=== PATIENT | female | born 1955 | race Caucasian/White ===

== ENCOUNTER 2019-04-18 14:08 | Inpatient (IN) | payer BC ==
[~2019-04-18] VITALS: Ht 167.6 cm; Wt 80.3 kg
[2019-04-18] VITALS (14 sets, daily range): BP systolic 110–151; BP diastolic 56–95
--- NOTE | 2019-04-18 14:53 | NUR ---
IV ESTABALISHED TO RIGHT AC. BEGIN NS FLUID BOLUS OKAY PER PROVIDER.
[2019-04-18 15:34] LABS: BASOPHILS % (AUTO) 0.3 % (0-1); EOSINOPHILS % (AUTO) 0.1 % (0-6); HEMATOCRIT 46.1 % (35.0-45.0); HEMOGLOBIN 15.6 g/dl (12.0-16.0); LYMPHOCYTES # (AUTO) 1.4 X10'3 (1.1-4.8); LYMPHOCYTES % (AUTO) 13.4 % (21-51); MEAN CORPUSCULAR HEMOGLOBIN 30.6 PG (27.0-31.0); MEAN CORPUSCULAR VOLUME 90.1 FL (78-98); MEAN PLATELET VOLUME 7.5 FL (7.4-10.4); MONOCYTES # (AUTO) 0.7 X10'3 (0-0.9); MONOCYTES % (AUTO) 6.7 % (2-12); NEUTROPHILS # (AUTO) 8.4 X10'3 (1.8-7.7); NEUTROPHILS % (AUTO) 79.5 % (42-75); PLATELET COUNT 280 X10'3 (140-440); RED BLOOD COUNT 5.11 X10'6 (4.20-5.60); RED CELL DISTRIBUTION WIDTH 13.9 % (11.5-14.5); WHITE BLOOD COUNT 10.6 X10'3 (4.5-11.0)
[2019-04-18] MEDS ORDERED: piperacillin/tazo 3.375gm/50ml 50 ML IV ONE (15:35)
[2019-04-18] MEDS ORDERED: metroNIDAZOLE-Flagyl 500mg/NS 100 ML IV ONE (15:35)
[2019-04-18 15:38] LABS: ALBUMIN 3.8 G/DL (3.4-5.0); ANION GAP 6 (8-16); BLOOD UREA NITROGEN 28 MG/DL (7-18); BUN/CREATININE RATIO 32.9 (6.6-38.0); CALCIUM 9.5 MG/DL (8.5-10.1); CHLORIDE 100 MMOL/L (99-107); CREATININE 0.85 MG/DL (0.40-0.90); GLUCOSE 113 MG/DL (70-104); POTASSIUM 3.5 MMOL/L (3.5-5.1); SODIUM 135 MMOL/L (135-145); TOTAL CARBON DIOXIDE 29.2 MMOL/L (24-32); eGFR 68 ML/MIN
[2019-04-18 16:26] LABS: CLARITY,URINE CLEAR (Clear); COLOR,URINE YELLOW (Yellow); GLUCOSE, URINE NEGATIVE (Neg); KETONES,URINE 15 mg/dl (Neg); LEUKOCYTE ESTERASE ,URINE TRACE (Neg); NITRITES, URINE NEGATIVE (Neg); OCCULT BLOOD,URINE LARGE (Neg); PH,URINE 5.5 (4.8-8.0); PROTEIN,URINE TRACE mg/dl (Neg); UA COLLECTION TYPE CLN CATCH MIDSTREAM; UROBILINOGEN,URINE 0.2 E.U/dL (0.2-1.0)
[2019-04-18 16:34] LABS: COARSE GRANULAR CAST 0-3 /LPF (NEGATIVE); HYALINE CASTS 0-3 /LPF (NEGATIVE)
[2019-04-18 16:35] LABS: MUCUS STRANDS MODERATE /LPF (Neg)
[2019-04-18 16:36] LABS: SQUAMOUS EPITHELIAL CELL,UR FEW /LPF (FEW)
[2019-04-18 16:37] LABS: BACTERIA,URINE 1+ /HPF (Neg)
--- NOTE | 2019-04-18 16:45 | NUR ---
HOSPITALIST IN ROOM TO EVAL PT FOR ADMIT. PER DR RODRIGUEZ PT WILL NEED AN NG.
[2019-04-18] MEDS ORDERED: ringers solution, lacted 1,000 ML IV SCH (16:57)
[2019-04-18] MEDS ORDERED: ondansetron/PF 4mg/2ml inj IV PRN ×2 (17:00→17:15)
[2019-04-18] MEDS ORDERED: meperidine/PF 25mg/ml syringe IV PRN ×3 (17:00)
[2019-04-18] MEDS ORDERED: proCHLORperazine 10 MG/2 ml inj IV PRN (17:00)
[2019-04-18] MEDS ORDERED: morphine 4 MG/ML inj SYRINge IV PRN ×2 (17:00)
[2019-04-18] MEDS ORDERED: acetaminophen 650mg rectal suppository RC PRN (17:15)
[2019-04-18] MEDS ORDERED: bisacodyl 10mg suppository rectal RC PRN (17:15)
[2019-04-18] MEDS ORDERED: potassium CL 10mEq/100ml bag 100 ML IV PRN (17:15)
[2019-04-18] MEDS ORDERED: magnesium 4gm in 100ml NS 100 ML IV PRN (17:15)
[2019-04-18] MEDS ORDERED: magnesium 2GM in 50ml NS 50 ML IV PRN (17:15)
[2019-04-18] MEDS ORDERED: potassium Cl 20 mEq SR tablet PO PRN (17:15)
[2019-04-18] MEDS ORDERED: morphine 2 MG/ML inj. syringe IV PRN (17:15)
[2019-04-18] MEDS ORDERED: gentamicin 40 MG/1 ML inj ONE (17:26)
[2019-04-18] MEDS ORDERED: clindamycin phosphate 150mg/ml inj. ONE (17:26)
[2019-04-18] MEDS ORDERED: BUPIVAcaine/PF 2.5 mg/ml (0.25%) 30ml vial ONE ×2 (17:57→20:09)
[2019-04-18] MEDS ORDERED: midazolam 2 mg/2 ml injection ONE (17:58)
[2019-04-18] MEDS ORDERED: fentaNYL /PF 50mcg/ml 5ml ampule ONE (17:58)
[2019-04-18] MEDS ORDERED: LIDOcaine 2% (20mg/ml) 5ml vial ONE (17:59)
[2019-04-18] MEDS ORDERED: propofol inj 20 ML IV ONE (17:59)
[2019-04-18] MEDS ORDERED: rocuronium 10mg/ml inj IV ONE (17:59)
[2019-04-18] MEDS ORDERED: glycopyrrolate 0.2mg/ml inj ONE (18:02)
[2019-04-18] MEDS ORDERED: neostigmine methylsulfate 1 MG/ML 10ml vial ONE (18:02)
[2019-04-18] MEDS ORDERED: sevoflurane 250ml liquid IH ONE (18:02)
[2019-04-18] MEDS: normal saline 1000ml 1,000 ML IV SCH (18:24)
[2019-04-18] MEDS ORDERED: ondansetron/PF 4mg/2ml inj ONE (18:24)
[2019-04-18] MEDS ORDERED: dexamethasone sod phosphate 4mg/ml inj. ONE (18:24)
[2019-04-18] MEDS ORDERED: meperidine/PF 50mg/ml syringe ONE (19:54)
[2019-04-18] MEDS ORDERED: BUPIVAcaine/PF 2.5mg/ml (0.25%) 10ml vial ONE (20:08)
[2019-04-18] MEDS ORDERED: BUPIVACAINE liposomal/PF 13.3 MG/ML vial IM ONE (20:09)
--- NOTE | 2019-04-18 20:55 | NUR ---
Received from OR via SURGICAL BED, accompanied by Anesthesiologist DR CARRERO and report given by Anesthesiolgist. PT AROUSES VERY EASILY, TALKING AND ASKING QUESTIONS, PLACED ON O2 AND MONITOR, S/P LAP/ OPEN UMBILICAL HERNIA REPAIR AND PARTIAL COLECTOMY, GENERAL ANESTH. AND BILAT ABD TAP BLOCK, PT HAS LARGE ABD BANDAIDS AND ISLAND DRESSING CDI, ABD SOFT, NACHO DRAIN TO RIGHT ABD AND FLOEY CATH DRAINING CLOUDY YELLOW, DENIES ANY NAUSEA STATES, "ITS A LITTLE SORE", WILL CONT TO ASSESS.
--- NOTE | 2019-04-18 21:55 | NUR ---
Report called to receiving nurse. Transferred via SURGICAL BED TO ROOM 347B Belongings . Special Issues communicated to receiving nurse AND ABD DRESSINGS AND DRAIN CHECKED BY 2 NURSES. PT AWAKE, DOING WELL, TOLERATING ICE CHIPS, ATTEMPTED TO FIND PT'S FRIENDS BUT COULD NOT FIND THEM.
[2019-04-18] MEDS: K and/or MAG REPLACEMENT MC SCH (22:41)
[2019-04-18] MEDS: piperacillin/tazo 4.5gm/100ml 100 ML IV SCH (23:52)
[2019-04-19 00:45] VITALS: BP 110/63
[2019-04-19 01:45] VITALS: BP 104/66
[2019-04-19] MEDS ORDERED: morphine 4 MG/ML inj SYRINge IV ONE (01:55)
[2019-04-19] MEDS: normal saline 1000ml 1,000 ML IV SCH ×5 (03:13→23:46)
[2019-04-19 04:09] VITALS: BP_SYST 100; BP_SYST 119; BP_DIAS 55; BP_DIAS 68
[2019-04-19 06:03] LABS: BASOPHILS % (AUTO) 0 % (0-1); EOSINOPHILS % (AUTO) 0 % (0-6); HEMATOCRIT 37.2 % (35.0-45.0); HEMOGLOBIN 12.7 g/dl (12.0-16.0); LYMPHOCYTES # (AUTO) 0.6 X10'3 (1.1-4.8); LYMPHOCYTES % (AUTO) 6.7 % (21-51); MEAN CORPUSCULAR HEMOGLOBIN 30.2 PG (27.0-31.0); MEAN PLATELET VOLUME 7.5 FL (7.4-10.4); MONOCYTES # (AUTO) 0.6 X10'3 (0-0.9); MONOCYTES % (AUTO) 7.1 % (2-12); NEUTROPHILS # (AUTO) 7.3 X10'3 (1.8-7.7); NEUTROPHILS % (AUTO) 86.2 % (42-75); PLATELET COUNT 233 X10'3 (140-440); RED BLOOD COUNT 4.18 X10'6 (4.20-5.60); RED CELL DISTRIBUTION WIDTH 13.6 % (11.5-14.5); WHITE BLOOD COUNT 8.5 X10'3 (4.5-11.0)
[2019-04-19 06:19] LABS: ALANINE AMINOTRANSFERASE 14 U/L (12-78); ALBUMIN 2.7 G/DL (3.4-5.0); ALBUMIN/GLOBULIN RATIO 0.8 (1.1-1.5); ALKALINE PHOSPHATASE 51 IU/L (46-116); ANION GAP 6 (8-16); ASPARTATE AMINO TRANSFERASE 18 U/L (10-37); BILIRUBIN,TOTAL 0.9 MG/DL (0.1-1.0); BLOOD UREA NITROGEN 23 MG/DL (7-18); BUN/CREATININE RATIO 29.1 (6.6-38.0); CHLORIDE 104 MMOL/L (99-107); CREATININE 0.79 MG/DL (0.40-0.90); GLUCOSE 124 MG/DL (70-104); MAGNESIUM 1.7 MG/DL (1.5-2.4); POTASSIUM 3.7 MMOL/L (3.5-5.1); SODIUM 139 MMOL/L (135-145); TOTAL CARBON DIOXIDE 28.6 MMOL/L (24-32); TOTAL PROTEIN 6.3 G/DL (6.4-8.2); eGFR 74 ML/MIN
[2019-04-19] MEDS ORDERED: NO HOME MEDS (06:33)
[2019-04-19 08:00] VITALS: BP 101/49
[2019-04-19] MEDS: K and/or MAG REPLACEMENT MC SCH ×2 (08:00→20:00)
[2019-04-19] MEDS: piperacillin/tazo 4.5gm/100ml 100 ML IV SCH ×3 (08:08→23:45)
[2019-04-19] MEDS: enoxaparin 40mg/0.4ml syringe SQ SCH (08:09)
[2019-04-19] MEDS: morphine 2 MG/ML inj. syringe IV PRN ×4 (08:10→23:46)
[2019-04-19] MEDS ORDERED: pneumococcal 23-VAL P-sac vacc 25 mcg/0.5ml vial IMVAC ONE (10:00)
[2019-04-19 11:00] VITALS: BP 106/55
--- NOTE | 2019-04-19 15:44 | NUR ---
Malnutrition consult, pt is s/p hernia repair and is currently NPO, reports very little appetite except craving coffee and popsicles. Reports usual body weight between 170-175 lbs, currently weighs 177 lbs stable with report UBW. Poor appetite r/t recent surgery and looking forward to diet advancement. No malnutrition. Will follow per policy. Addendum: 04/19/19 at [address] Amended: Links added.
--- NOTE | 2019-04-19 18:31 | NUR ---
Gave report to Terri VINCENT
[2019-04-19 20:00] VITALS: BP 94/47
--- NOTE | 2019-04-19 22:46 | NUR ---
Patient in room [facility]. I have received report from CARLTON Howard and had the opportunity to ask questions and assume patient care. Addendum: 04/19/19 at 2247 by Terri Montes RN Amended: Links added.
[2019-04-20 00:33] VITALS: BP 95/49
[2019-04-20 05:30] LABS: BASOPHILS % (AUTO) 0.3 % (0-1); EOSINOPHILS % (AUTO) 0.1 % (0-6); HEMATOCRIT 31.9 % (35.0-45.0); HEMOGLOBIN 10.8 g/dl (12.0-16.0); LYMPHOCYTES % (AUTO) 17.3 % (21-51); MEAN CORPUSCULAR HEMOGLOBIN 30.6 PG (27.0-31.0); MEAN CORPUSCULAR HGB CONC 33.9 g/dL (33.0-36.5); MEAN CORPUSCULAR VOLUME 90.3 FL (78-98); MEAN PLATELET VOLUME 7.4 FL (7.4-10.4); MONOCYTES # (AUTO) 0.5 X10'3 (0-0.9); MONOCYTES % (AUTO) 8.1 % (2-12); NEUTROPHILS # (AUTO) 4.5 X10'3 (1.8-7.7); NEUTROPHILS % (AUTO) 74.2 % (42-75); PLATELET COUNT 205 X10'3 (140-440); RED BLOOD COUNT 3.54 X10'6 (4.20-5.60); RED CELL DISTRIBUTION WIDTH 13.5 % (11.5-14.5); WHITE BLOOD COUNT 6.1 X10'3 (4.5-11.0)
[2019-04-20 05:39] LABS: ALANINE AMINOTRANSFERASE 10 U/L (12-78); ALBUMIN 2.3 G/DL (3.4-5.0); ALBUMIN/GLOBULIN RATIO 0.7 (1.1-1.5); ALKALINE PHOSPHATASE 40 IU/L (46-116); ANION GAP 8 (8-16); ASPARTATE AMINO TRANSFERASE 16 U/L (10-37); BILIRUBIN,TOTAL 0.6 MG/DL (0.1-1.0); BLOOD UREA NITROGEN 16 MG/DL (7-18); BUN/CREATININE RATIO 24.6 (6.6-38.0); CALCIUM 8.1 MG/DL (8.5-10.1); CHLORIDE 106 MMOL/L (99-107); CREATININE 0.65 MG/DL (0.40-0.90); GLUCOSE 88 MG/DL (70-104); MAGNESIUM 1.9 MG/DL (1.5-2.4); SODIUM 140 MMOL/L (135-145); TOTAL CARBON DIOXIDE 26.2 MMOL/L (24-32); TOTAL PROTEIN 5.5 G/DL (6.4-8.2); eGFR > 90 ML/MIN
--- NOTE | 2019-04-20 06:33 | NUR ---
Problems reprioritized. Patient report given, questions answered & plan of care reviewed with CARLTON Floyd. Addendum: 04/20/19 at 0633 by Terri Montes RN Amended: Links added.
[2019-04-20 07:00] VITALS: BP 134/64
--- NOTE | 2019-04-20 07:19 | NUR ---
Patient in room [facility]. I have received report from Beth VINCENT and had the opportunity to ask questions and assume patient care. Addendum: 04/20/19 at 0721 by Mariel Marie RN Received patient report from Terri VINCENT
[2019-04-20] MEDS: K and/or MAG REPLACEMENT MC SCH ×2 (08:00→20:00)
[2019-04-20] MEDS: morphine 2 MG/ML inj. syringe IV PRN ×2 (08:38→17:41)
[2019-04-20] MEDS: piperacillin/tazo 4.5gm/100ml 100 ML IV SCH ×3 (08:39→23:56)
[2019-04-20] MEDS: enoxaparin 40mg/0.4ml syringe SQ SCH (08:39)
[2019-04-20 11:00] VITALS: BP 104/49
[2019-04-20] MEDS: metoclopramide 5 mg/ml inj IV SCH ×2 (13:32→20:18)
[2019-04-20] MEDS: normal saline 1000ml 1,000 ML IV SCH (14:16)
[2019-04-20] MEDS: potassium CL 10mEq/100ml bag 100 ML IV PRN ×5 (15:18→23:34)
--- NOTE | 2019-04-20 18:08 | NUR ---
Problems reprioritized. Patient report given, questions answered & plan of care reviewed with Ayden VINCENT.
[2019-04-20 18:30] VITALS: BP 92/45
[2019-04-21] VITALS: BP 113/56
[2019-04-21] MEDS: normal saline 1000ml 1,000 ML IV SCH ×2 (02:42→13:17)
[2019-04-21] MEDS: metoclopramide 5 mg/ml inj IV SCH ×3 (03:37→13:18)
[2019-04-21] MEDS: potassium CL 10mEq/100ml bag 100 ML IV PRN (03:38)
[2019-04-21 05:49] LABS: BASOPHILS % (AUTO) 0.2 % (0-1); EOSINOPHILS % (AUTO) 0.4 % (0-6); HEMATOCRIT 31.9 % (35.0-45.0); HEMOGLOBIN 10.8 g/dl (12.0-16.0); LYMPHOCYTES # (AUTO) 1.2 X10'3 (1.1-4.8); LYMPHOCYTES % (AUTO) 18.8 % (21-51); MEAN CORPUSCULAR HEMOGLOBIN 30.7 PG (27.0-31.0); MEAN CORPUSCULAR HGB CONC 33.9 g/dL (33.0-36.5); MEAN CORPUSCULAR VOLUME 90.4 FL (78-98); MEAN PLATELET VOLUME 7.2 FL (7.4-10.4); MONOCYTES # (AUTO) 0.4 X10'3 (0-0.9); MONOCYTES % (AUTO) 6.4 % (2-12); NEUTROPHILS # (AUTO) 4.7 X10'3 (1.8-7.7); NEUTROPHILS % (AUTO) 74.2 % (42-75); PLATELET COUNT 216 X10'3 (140-440); RED BLOOD COUNT 3.53 X10'6 (4.20-5.60); RED CELL DISTRIBUTION WIDTH 13.8 % (11.5-14.5); WHITE BLOOD COUNT 6.3 X10'3 (4.5-11.0)
[2019-04-21 06:04] LABS: ALANINE AMINOTRANSFERASE 9 U/L (12-78); ALBUMIN 2.2 G/DL (3.4-5.0); ALBUMIN/GLOBULIN RATIO 0.7 (1.1-1.5); ALKALINE PHOSPHATASE 47 IU/L (46-116); ANION GAP 7 (8-16); ASPARTATE AMINO TRANSFERASE 15 U/L (10-37); BILIRUBIN,TOTAL 0.4 MG/DL (0.1-1.0); BLOOD UREA NITROGEN 12 MG/DL (7-18); BUN/CREATININE RATIO 25.5 (6.6-38.0); CALCIUM 7.8 MG/DL (8.5-10.1); CHLORIDE 109 MMOL/L (99-107); CREATININE 0.47 MG/DL (0.40-0.90); GLUCOSE 81 MG/DL (70-104); MAGNESIUM 1.8 MG/DL (1.5-2.4); POTASSIUM 3.2 MMOL/L (3.5-5.1); SODIUM 141 MMOL/L (135-145); TOTAL CARBON DIOXIDE 24.8 MMOL/L (24-32); TOTAL PROTEIN 5.5 G/DL (6.4-8.2); eGFR > 90 ML/MIN
[2019-04-21 07:00] VITALS: BP 88/48
--- NOTE | 2019-04-21 07:18 | NUR ---
Problems reprioritized. Patient report given, questions answered & plan of care reviewed with IJEOMA. Addendum: 04/21/19 at 0718 by Trip Beaver RN Amended: Links added.
[2019-04-21 07:34] VITALS: BP 92/68
[2019-04-21] MEDS: K and/or MAG REPLACEMENT MC SCH ×2 (08:00→20:00)
[2019-04-21] MEDS: enoxaparin 40mg/0.4ml syringe SQ SCH (09:23)
[2019-04-21] MEDS: piperacillin/tazo 4.5gm/100ml 100 ML IV SCH ×3 (09:23→23:52)
[2019-04-21] MEDS: potassium Cl 20 mEq SR tablet PO PRN ×2 (09:24→13:16)
[2019-04-21] MEDS: morphine 2 MG/ML inj. syringe IV PRN (09:30)
[2019-04-21] MEDS ORDERED: HYDROcodone/acetaminophen 10/325mg tab PO PRN (09:35)
[2019-04-21 11:00] VITALS: BP 106/49
--- NOTE | 2019-04-21 12:26 | NUR ---
Student documentation: I have reviewed interventions, assessments performed and documented by Dayana PATRICIO [facility].
[2019-04-21] MEDS: HYDROcodone/acetaminophen 5mg/325mg tablet PO PRN ×3 (13:15→22:58)
--- NOTE | 2019-04-21 13:47 | NUR ---
jalil drainage serous sanguineous Addendum: 04/21/19 at 1348 by Anupam Padilla STUDENT [facility]NE Amended: Links added.
--- NOTE | 2019-04-21 18:45 | NUR ---
shift change report given by CARLTON Floyd
--- NOTE | 2019-04-21 18:59 | NUR ---
Problems reprioritized. Patient report given, questions answered & plan of care reviewed with Pat RN.
[2019-04-21] MEDS: docusate sod 100mg capsule PO SCH (20:17)
[2019-04-21] MEDS ORDERED: potassium CL 10mEq/100ml bag 100 ML IV PRN (21:40)
[2019-04-21] MEDS ORDERED: potassium Cl 20 mEq SR tablet PO PRN ×2 (21:40)
[2019-04-22 05:50] LABS: ALANINE AMINOTRANSFERASE 8 U/L (12-78); ALBUMIN 2.1 G/DL (3.4-5.0); ALBUMIN/GLOBULIN RATIO 0.7 (1.1-1.5); ALKALINE PHOSPHATASE 49 IU/L (46-116); ANION GAP 3 (8-16); ASPARTATE AMINO TRANSFERASE 18 U/L (10-37); BILIRUBIN,TOTAL 0.4 MG/DL (0.1-1.0); BLOOD UREA NITROGEN 5 MG/DL (7-18); BUN/CREATININE RATIO 8.8 (6.6-38.0); CALCIUM 7.7 MG/DL (8.5-10.1); CHLORIDE 109 MMOL/L (99-107); CREATININE 0.57 MG/DL (0.40-0.90); GLUCOSE 88 MG/DL (70-104); MAGNESIUM 1.6 MG/DL (1.5-2.4); POTASSIUM 3.6 MMOL/L (3.5-5.1); SODIUM 139 MMOL/L (135-145); TOTAL CARBON DIOXIDE 27.1 MMOL/L (24-32); TOTAL PROTEIN 5.3 G/DL (6.4-8.2); eGFR > 90 ML/MIN
--- NOTE | 2019-04-22 06:45 | NUR ---
checked q1hr; slept at intervals with resp even and unlabored; shift change report given to CARLTON Quach
--- NOTE | 2019-04-22 06:50 | NUR ---
omit entry at 0645; shift change report given to CARLTON Sepulveda
[2019-04-22 06:51] LABS: BASOPHILS % (AUTO) 0.6 % (0-1); EOSINOPHILS # (AUTO) 0.1 X10'3 (0-0.9); EOSINOPHILS % (AUTO) 2.5 % (0-6); HEMATOCRIT 34.8 % (35.0-45.0); HEMOGLOBIN 11.9 g/dl (12.0-16.0); LYMPHOCYTES # (AUTO) 1.3 X10'3 (1.1-4.8); LYMPHOCYTES % (AUTO) 26.5 % (21-51); MEAN CORPUSCULAR HEMOGLOBIN 30.9 PG (27.0-31.0); MEAN CORPUSCULAR HGB CONC 34.3 g/dL (33.0-36.5); MEAN CORPUSCULAR VOLUME 90.1 FL (78-98); MONOCYTES # (AUTO) 0.3 X10'3 (0-0.9); MONOCYTES % (AUTO) 7.2 % (2-12); NEUTROPHILS % (AUTO) 63.2 % (42-75); PLATELET COUNT 277 X10'3 (140-440); RED BLOOD COUNT 3.86 X10'6 (4.20-5.60); RED CELL DISTRIBUTION WIDTH 13.6 % (11.5-14.5); WHITE BLOOD COUNT 4.8 X10'3 (4.5-11.0)
[2019-04-22 07:00] VITALS: BP 94/39
[2019-04-22] MEDS: docusate sod 100mg capsule PO SCH (07:47)
[2019-04-22] MEDS: HYDROcodone/acetaminophen 5mg/325mg tablet PO PRN ×2 (07:49→14:05)
[2019-04-22] MEDS: enoxaparin 40mg/0.4ml syringe SQ SCH (07:50)
[2019-04-22] MEDS: piperacillin/tazo 4.5gm/100ml 100 ML IV SCH (07:50)
[2019-04-22] MEDS ORDERED: K and/or MAG REPLACEMENT MC SCH (08:00)
[2019-04-22] MEDS: K and/or MAG REPLACEMENT MC SCH (08:00)
[2019-04-22] MEDS ORDERED: HYDR-4383 PO (10:31)
[2019-04-22 11:00] VITALS: BP 107/67
--- NOTE | 2019-04-22 15:56 | NUR ---
PATIENT STABLE AND APPROPRIATE FOR DISCHARGE, IV TAKEN OUT [place] SCRIPT GIVEN TO PATIENT, EDUCATION GIVEN, ALL BELONGINGS SENT WITH PATIENT, PATIENT TAKEN TO LOBBY IN WHEELCHAIR TO AN AWAITING CAR WHERE FRIENDS WILL TAKE PATIENT HOME
[2019-04-22] MEDS ORDERED: piperacillin/tazo 3.375gm/50ml 50 ML IV SCH (16:00)
== END 2019-04-22 15:56 | disposition home or self-care (01) | DRG 329 ==
LOC: ER 14:08 → ED HOLD 17:11 → SUR 3N 22:02
PROVIDERS: ADMIT Family Medicine; ATTEND Internal Medicine
PROC: 0WQF0ZZ Repair Abdominal Wall, Open Approach (ICD-10-PCS; 2019-04-18)
PROC: 0DNU4ZZ Release Omentum, Percutaneous Endoscopic Approach (ICD-10-PCS; 2019-04-18)
PROC: 3E0T3BZ Introduction of Anesthetic Agent into Peripheral Nerves and Plexi, Percutaneous Approach (ICD-10-PCS; 2019-04-18)
PROC: 0DT80ZZ Resection of Small Intestine, Open Approach (ICD-10-PCS; principal; 2019-04-18 18:02)
PROC: 3E0234Z Introduction of Serum, Toxoid and Vaccine into Muscle, Percutaneous Approach (ICD-10-PCS; 2019-04-19)
DX: K42.0 Umbilical hernia with obstruction, without gangrene (principal); E43 Unspecified severe protein-calorie malnutrition; K55.029 Acute infarction of small intestine, extent unspecified; E87.2 Acidosis; K56.7 Ileus, unspecified; L03.818 Cellulitis of other sites; D64.9 Anemia, unspecified; E86.0 Dehydration; E87.6 Hypokalemia; K66.0 Peritoneal adhesions (postprocedural) (postinfection); Z83.3 Family history of diabetes mellitus; Z90.711 Acquired absence of uterus with remaining cervical stump; Z98.84 Bariatric surgery status; Z68.28 Body mass index [BMI] 28.0-28.9, adult; Z23 Encounter for immunization
CPT/HCPCS: 96365; 96368; 99285; Z7506; Z7508; 36415; 74176; 80048; 80053; 81001; 82948; 83605; 83735; 85025; 87040; 87081; 90732; 93005; A4215; A4618; A6449; A7000; C1758; C9290; G0378; J1100; J1580; J1650; J2001; J2175; J2250; J2270; J2405; J2543; J2704; J2710; J2765; J3010; J3480; J3490; J7030; J7120

== ENCOUNTER 2019-05-02 05:01 | Inpatient (IN) | payer BC ==
[~2019-05-02] VITALS: Ht 170.2 cm; Wt 76.8 kg
[~2019-05-02 05:01] MED LIST: HYDR-4383 PO
[2019-05-02] MEDS ORDERED: morphine 4 MG/ML inj SYRINge IV ONE (05:40)
[2019-05-02] MEDS ORDERED: ondansetron/PF 4mg/2ml inj IV ONE ×2 (05:40→07:15)
[2019-05-02 05:53] LABS: BASOPHILS % (AUTO) 0.4 % (0-1); EOSINOPHILS % (AUTO) 0.1 % (0-6); HEMATOCRIT 42.4 % (35.0-45.0); HEMOGLOBIN 14.4 g/dl (12.0-16.0); LYMPHOCYTES # (AUTO) 0.8 X10'3 (1.1-4.8); LYMPHOCYTES % (AUTO) 10.6 % (21-51); MEAN CORPUSCULAR HEMOGLOBIN 30.2 PG (27.0-31.0); MEAN PLATELET VOLUME 6.8 FL (7.4-10.4); MONOCYTES # (AUTO) 0.3 X10'3 (0-0.9); NEUTROPHILS # (AUTO) 6.3 X10'3 (1.8-7.7); NEUTROPHILS % (AUTO) 84.9 % (42-75); PLATELET COUNT 525 X10'3 (140-440); RED BLOOD COUNT 4.76 X10'6 (4.20-5.60); RED CELL DISTRIBUTION WIDTH 13.8 % (11.5-14.5); WHITE BLOOD COUNT 7.5 X10'3 (4.5-11.0)
[2019-05-02 06:05] LABS: ALANINE AMINOTRANSFERASE 15 U/L (12-78); ALBUMIN 3.8 G/DL (3.4-5.0); ALBUMIN/GLOBULIN RATIO 0.8 (1.1-1.5); ALKALINE PHOSPHATASE 79 IU/L (46-116); ANION GAP 13 (8-16); ASPARTATE AMINO TRANSFERASE 20 U/L (10-37); BILIRUBIN,TOTAL 0.4 MG/DL (0.1-1.0); BLOOD UREA NITROGEN 17 MG/DL (7-18); BUN/CREATININE RATIO 22.1 (6.6-38.0); CALCIUM 9.9 MG/DL (8.5-10.1); CHLORIDE 100 MMOL/L (99-107); CREATININE 0.77 MG/DL (0.40-0.90); GLUCOSE 156 MG/DL (70-104); LIPASE 209 U/L (73-393); POTASSIUM 4.2 MMOL/L (3.5-5.1); SODIUM 138 MMOL/L (135-145); TOTAL CARBON DIOXIDE 24.7 MMOL/L (24-32); TOTAL PROTEIN 8.7 G/DL (6.4-8.2); eGFR 76 ML/MIN
[2019-05-02] MEDS ORDERED: normal saline 1000ML IV soln IVB ONE (07:15)
[2019-05-02] MEDS: diatr meglu/diatrizoate 30ml oral sol.-(3 dose) bottle PO SCH ×4 (07:29→21:26)
[2019-05-02 08:00] LABS: CLARITY,URINE CLEAR (Clear); GLUCOSE, URINE NEGATIVE (Neg); KETONES,URINE 15 mg/dl (Neg); LEUKOCYTE ESTERASE ,URINE NEGATIVE (Neg); NITRITES, URINE NEGATIVE (Neg); OCCULT BLOOD,URINE SMALL (Neg); PH,URINE 7.5 (4.8-8.0); PROTEIN,URINE 30 mg/dl (Neg); UROBILINOGEN,URINE 0.2 E.U/dL (0.2-1.0)
[2019-05-02 08:01] LABS: URINE HCG NEGATIVE (NEG)
[2019-05-02 08:03] LABS: UA COLLECTION TYPE CLN CATCH MIDSTREAM
[2019-05-02 08:04] LABS: COLOR,URINE DARK YELLOW (Yellow)
[2019-05-02 08:12] LABS: BACTERIA,URINE 1+ /HPF (Neg); MUCUS STRANDS FEW /LPF (Neg); SQUAMOUS EPITHELIAL CELL,UR MODERATE /LPF (FEW); WBC,URINE 0-4 /HPF (0-4)
--- NOTE | 2019-05-02 09:00 | NUR ---
Dr. Carbone ok with just x2 doses of gastroview orally. Patient c/o increased nausea and abd cramping after administration. CT aware that patient is ready for CT scan.
[2019-05-02] MEDS ORDERED: iohexol 300mg/ml 100ml inj. ONE (09:30)
[2019-05-02] MEDS ORDERED: HYDROmorphone inj. 0.5 MG/0.5 ML DISP.SYRIN IV ONE ×2 (10:00)
--- NOTE | 2019-05-02 10:00 | NUR ---
Spoke with Dr. Carbone regarding patients abd cramping pain of 7/10 on 0-[address] Carbone stated to place verbal order to 0.5 mg IV dilaudid once now. Will place order and contact pharmacy regarding need.
[2019-05-02] MEDS ORDERED: HYDROcodone/acetaminophen 10/325mg tab PO PRN (10:30)
[2019-05-02] MEDS ORDERED: magnesium hydroxide 30ml (MOM) UD suspension PO PRN (10:30)
[2019-05-02] MEDS ORDERED: metoclopramide 5 mg/ml inj IV PRN (10:30)
[2019-05-02] MEDS ORDERED: potassium CL 10mEq/100ml bag 100 ML IV PRN ×2 (10:30)
[2019-05-02] MEDS ORDERED: morphine 2 MG/ML inj. syringe IV PRN (10:30)
[2019-05-02] MEDS ORDERED: acetaminophen 325mg tablet PO PRN ×2 (10:30)
[2019-05-02] MEDS ORDERED: mag hydrox/Alum hydrox/simeth 30ml oral suspension PO PRN (10:30)
[2019-05-02] MEDS ORDERED: magnesium 2GM in 50ml NS 50 ML IV PRN (10:30)
[2019-05-02] MEDS ORDERED: magnesium Cl slow-release 64mg tablet PO PRN (10:30)
[2019-05-02] MEDS ORDERED: potassium Cl 20 mEq SR tablet PO PRN ×2 (10:30)
[2019-05-02] MEDS ORDERED: magnesium 4gm in 100ml NS 100 ML IV PRN (10:30)
[2019-05-02] MEDS ORDERED: HYDROcodone/acetaminophen 5mg/325mg tablet PO PRN (10:30)
[2019-05-02] MEDS ORDERED: NO HOME MEDS (11:23)
--- NOTE | 2019-05-02 11:26 | NUR ---
GOT REPORT FROM ARNALDO IN ER
[2019-05-02 11:45] VITALS: BP 104/70
[2019-05-02] MEDS: normal saline 1000ml 1,000 ML IV SCH ×2 (12:07→19:32)
[2019-05-02] MEDS: morphine 2 MG/ML inj. syringe IV PRN ×2 (14:04→19:32)
--- NOTE | 2019-05-02 18:29 | NUR ---
Patient in room [facility]A. I have received report from CARLTON Sepulveda and had the opportunity to ask questions and assume patient care.
--- NOTE | 2019-05-02 18:45 | NUR ---
Problems reprioritized. Patient report given, questions answered & plan of care reviewed with CARLTON MCDERMOTT.
[2019-05-02] MEDS: K and/or MAG REPLACEMENT MC SCH (19:40)
[2019-05-02] MEDS: heparin, porcine 5000 units/ml vial SQ SCH (19:40)
[2019-05-02 20:00] VITALS: BP 123/60
[2019-05-03] VITALS: BP 122/68
[2019-05-03] MEDS: ondansetron/PF 4mg/2ml inj IV PRN ×3 (00:52→22:21)
[2019-05-03] MEDS: morphine 2 MG/ML inj. syringe IV PRN ×2 (04:34→08:28)
[2019-05-03 05:30] LABS: BASOPHILS % (AUTO) 0.2 % (0-1); EOSINOPHILS % (AUTO) 0.1 % (0-6); HEMATOCRIT 38.8 % (35.0-45.0); LYMPHOCYTES # (AUTO) 0.7 X10'3 (1.1-4.8); LYMPHOCYTES % (AUTO) 11.9 % (21-51); MEAN CORPUSCULAR HEMOGLOBIN 30.2 PG (27.0-31.0); MEAN CORPUSCULAR HGB CONC 33.6 g/dL (33.0-36.5); MONOCYTES # (AUTO) 0.3 X10'3 (0-0.9); MONOCYTES % (AUTO) 5.2 % (2-12); NEUTROPHILS % (AUTO) 82.6 % (42-75); PLATELET COUNT 415 X10'3 (140-440); RED BLOOD COUNT 4.31 X10'6 (4.20-5.60); RED CELL DISTRIBUTION WIDTH 14.2 % (11.5-14.5); WHITE BLOOD COUNT 6.1 X10'3 (4.5-11.0)
[2019-05-03 05:38] LABS: ALANINE AMINOTRANSFERASE 13 U/L (12-78); ALBUMIN/GLOBULIN RATIO 0.8 (1.1-1.5); ALKALINE PHOSPHATASE 72 IU/L (46-116); ANION GAP 10 (8-16); ASPARTATE AMINO TRANSFERASE 17 U/L (10-37); BILIRUBIN,TOTAL 0.4 MG/DL (0.1-1.0); BLOOD UREA NITROGEN 18 MG/DL (7-18); BUN/CREATININE RATIO 28.6 (6.6-38.0); CALCIUM 8.6 MG/DL (8.5-10.1); CHLORIDE 105 MMOL/L (99-107); CREATININE 0.63 MG/DL (0.40-0.90); GLUCOSE 114 MG/DL (70-104); MAGNESIUM 1.7 MG/DL (1.5-2.4); PHOSPHORUS 2.9 MG/DL (2.3-4.5); POTASSIUM 3.9 MMOL/L (3.5-5.1); SODIUM 141 MMOL/L (135-145); TOTAL CARBON DIOXIDE 25.6 MMOL/L (24-32); TOTAL PROTEIN 6.9 G/DL (6.4-8.2); eGFR > 90 ML/MIN
--- NOTE | 2019-05-03 06:10 | NUR ---
Problems reprioritized. Patient report given, questions answered & plan of care reviewed with CARLTON Sepulveda.
--- NOTE | 2019-05-03 06:10 | NUR ---
Patient in room [facility]. I have received report from CARLTON MCDERMOTT and had the opportunity to ask questions and assume patient care.
[2019-05-03] MEDS: heparin, porcine 5000 units/ml vial SQ SCH ×2 (07:28→19:25)
[2019-05-03] MEDS: normal saline 1000ml 1,000 ML IV SCH ×2 (07:29→18:41)
[2019-05-03] MEDS: diatr meglu/diatrizoate 30ml oral sol.-(3 dose) bottle PO SCH ×2 (07:29→10:36)
[2019-05-03 08:00] VITALS: BP 121/70
[2019-05-03] MEDS: K and/or MAG REPLACEMENT MC SCH ×2 (08:00→19:31)
[2019-05-03] MEDS: HYDROmorphone 1 mg/ml syringe IV PRN ×5 (11:40→22:19)
[2019-05-03 12:00] VITALS: BP 153/81
--- NOTE | 2019-05-03 18:18 | NUR ---
Problems reprioritized. Patient report given, questions answered & plan of care reviewed with CARLTON Pantoja.
--- NOTE | 2019-05-03 18:18 | NUR ---
Received report from CARLTON Sepulveda. Patient is awake and alert on room air, in no apparent distress. Call light and items of frequent use within reach. Will continue to monitor.
[2019-05-03 20:00] VITALS: BP 131/65
[2019-05-04] VITALS (19 sets, daily range): BP systolic 118–151; BP diastolic 56–90
[2019-05-04] MEDS: HYDROmorphone 1 mg/ml syringe IV PRN ×6 (02:44→17:01)
[2019-05-04] MEDS: normal saline 1000ml 1,000 ML IV SCH ×3 (02:45→19:55)
[2019-05-04 04:49] LABS: BASOPHILS % (AUTO) 0.3 % (0-1); EOSINOPHILS % (AUTO) 0.1 % (0-6); HEMATOCRIT 35.4 % (35.0-45.0); LYMPHOCYTES # (AUTO) 0.8 X10'3 (1.1-4.8); LYMPHOCYTES % (AUTO) 12.5 % (21-51); MEAN CORPUSCULAR HEMOGLOBIN 30.8 PG (27.0-31.0); MEAN CORPUSCULAR HGB CONC 33.9 g/dL (33.0-36.5); MEAN CORPUSCULAR VOLUME 90.8 FL (78-98); MEAN PLATELET VOLUME 7.1 FL (7.4-10.4); MONOCYTES # (AUTO) 0.5 X10'3 (0-0.9); MONOCYTES % (AUTO) 7.5 % (2-12); NEUTROPHILS # (AUTO) 4.9 X10'3 (1.8-7.7); NEUTROPHILS % (AUTO) 79.6 % (42-75); PLATELET COUNT 372 X10'3 (140-440); RED BLOOD COUNT 3.89 X10'6 (4.20-5.60); RED CELL DISTRIBUTION WIDTH 13.9 % (11.5-14.5); WHITE BLOOD COUNT 6.1 X10'3 (4.5-11.0)
[2019-05-04 05:06] LABS: ALANINE AMINOTRANSFERASE 9 U/L (12-78); ALBUMIN 2.8 G/DL (3.4-5.0); ALBUMIN/GLOBULIN RATIO 0.7 (1.1-1.5); ALKALINE PHOSPHATASE 62 IU/L (46-116); ANION GAP 7 (8-16); ASPARTATE AMINO TRANSFERASE 14 U/L (10-37); BILIRUBIN,TOTAL 0.3 MG/DL (0.1-1.0); BLOOD UREA NITROGEN 19 MG/DL (7-18); BUN/CREATININE RATIO 30.2 (6.6-38.0); CALCIUM 8.9 MG/DL (8.5-10.1); CHLORIDE 107 MMOL/L (99-107); CREATININE 0.63 MG/DL (0.40-0.90); GLUCOSE 116 MG/DL (70-104); MAGNESIUM 1.7 MG/DL (1.5-2.4); PHOSPHORUS 2.9 MG/DL (2.3-4.5); SODIUM 141 MMOL/L (135-145); TOTAL CARBON DIOXIDE 26.7 MMOL/L (24-32); TOTAL PROTEIN 6.8 G/DL (6.4-8.2); eGFR > 90 ML/MIN
[2019-05-04] MEDS: ondansetron/PF 4mg/2ml inj IV PRN (05:33)
[2019-05-04] MEDS ORDERED: gentamicin 40 MG/1 ML inj ONE (06:01)
[2019-05-04] MEDS ORDERED: clindamycin phosphate 150mg/ml inj. ONE (06:02)
--- NOTE | 2019-05-04 06:13 | NUR ---
Patient in room [facility]. I have received report from CARLTON MCDERMOTT and had the opportunity to ask questions and assume patient care.
--- NOTE | 2019-05-04 06:20 | NUR ---
GAVE REPORT TO EARL IN OR
--- NOTE | 2019-05-04 06:28 | NUR ---
PATIENT TAKEN TO SURGERY,WAS UNABLE TO DO PHYSICAL ASSESSMENT OR IV ASSESSMENT. PATIENT WAS IN GOOD SPRITS AND IN NO APPARENT DISTRESS
[2019-05-04] MEDS ORDERED: glycopyrrolate 0.2mg/ml inj ONE (06:29)
[2019-05-04] MEDS ORDERED: neostigmine methylsulfate 1 MG/ML 10ml vial ONE (06:29)
[2019-05-04] MEDS ORDERED: sevoflurane 250ml liquid IH ONE (06:29)
[2019-05-04] MEDS ORDERED: midazolam 2 mg/2 ml injection ONE (06:38)
[2019-05-04] MEDS ORDERED: fentaNYL /PF 50mcg/ml 5ml ampule ONE (06:38)
[2019-05-04] MEDS ORDERED: ceFOXitin 2 GM ADDVANTGE BAG 50 ML IV ONE (06:57)
[2019-05-04] MEDS ORDERED: LIDOcaine 2% (20mg/ml) 5ml vial ONE (06:57)
[2019-05-04] MEDS ORDERED: propofol inj 20 ML IV ONE (06:57)
[2019-05-04] MEDS ORDERED: rocuronium 10mg/ml inj IV ONE ×2 (06:57→07:51)
[2019-05-04] MEDS ORDERED: ringers solution, lacted 1,000 ML IV SCH (07:22)
[2019-05-04] MEDS ORDERED: morphine 4 MG/ML inj SYRINge IV PRN (07:25)
[2019-05-04] MEDS ORDERED: ondansetron/PF 4mg/2ml inj IV PRN (07:25)
[2019-05-04] MEDS ORDERED: morphine 2 MG/ML inj. syringe IV PRN (07:25)
[2019-05-04] MEDS ORDERED: proCHLORperazine 10 MG/2 ml inj IV PRN (07:25)
[2019-05-04] MEDS ORDERED: meperidine/PF 25mg/ml syringe IV PRN ×2 (07:25)
[2019-05-04] MEDS ORDERED: phenylephrine 10mg/ml inj. ONE (07:43)
[2019-05-04] MEDS ORDERED: sugammadex 200mg/2ml injection IV ONE (07:43)
[2019-05-04] MEDS ORDERED: ondansetron/PF 4mg/2ml inj ONE (07:43)
[2019-05-04] MEDS ORDERED: dexamethasone sod phosphate 4mg/ml inj. ONE (07:43)
[2019-05-04] MEDS: heparin, porcine 5000 units/ml vial SQ SCH ×2 (08:00→19:55)
[2019-05-04] MEDS: K and/or MAG REPLACEMENT MC SCH ×2 (08:00→19:55)
--- NOTE | 2019-05-04 08:12 | NUR ---
Received from OR via , accompanied by Anesthesiologist JOYCE and report given by Anesthesiolgist. AWAKENS EASILY IN NO RESP DISTRESS SKIN WARM AND DRY HOB ELEVATAED, ABD SOFT DSG WITH FAINT SSD. TO SECURED WITH CLEAR YELLOW URINE. SCDS ON. NGT TO LOW SUCTION GREEN THICK FLUID. CO ABD PAIN, MEDICATED BY DR COOK.
[2019-05-04] MEDS ORDERED: BUPIVAcaine/PF 2.5mg/ml (0.25%) 10ml vial ONE (08:15)
[2019-05-04] MEDS ORDERED: BUPIVACAINE liposomal/PF 13.3 MG/ML vial IM ONE (08:16)
--- NOTE | 2019-05-04 08:35 | NUR ---
DR COOK ADMINISTERED TAP BLOCK.
[2019-05-04] MEDS: meperidine/PF 25mg/ml syringe IV PRN ×2 (08:36→09:04)
--- NOTE | 2019-05-04 08:58 | NUR ---
GOT REPORT FROM ANETTE IN OR
--- NOTE | 2019-05-04 09:22 | NUR ---
Report called to receiving nurse. Transferred via BED Belongings . Special Issues communicated to receiving nurse.AWAKE VS WNL, ABD SOFT DSG WITH NO INCREASE SSD. TO SECURED CLEAR YELLOW URINE. SCDS CONT, NG WITH NO INCREASE GREEN DRAINAGE. TO ROOM 344A
[2019-05-04] MEDS: ceFOXitin sod/dextrose 2g/50ml 50 ML IV SCH ×2 (14:43→19:55)
[2019-05-04] MEDS ORDERED: naloxone 0.4 mg/ml inj IV PRN (17:35)
[2019-05-04] MEDS ORDERED: CADD PCA waste documentation MC PRN (17:35)
--- NOTE | 2019-05-04 18:27 | NUR ---
Problems reprioritized. Patient report given, questions answered & plan of care reviewed with CARLTON MCDERMOTT.
--- NOTE | 2019-05-04 18:27 | NUR ---
Patient in room [facility]A. I have received report from CARLTON Sepulveda and had the opportunity to ask questions and assume patient care.
[2019-05-04] MEDS: HYDROmorphone/NS 1 mg/ml CADD 50 ML IV SCH ×3 (20:10→23:00)
[2019-05-05] VITALS: BP 117/54
[2019-05-05] MEDS: HYDROmorphone/NS 1 mg/ml CADD 50 ML IV SCH ×12 (01:00→23:00)
[2019-05-05] MEDS: ceFOXitin sod/dextrose 2g/50ml 50 ML IV SCH ×4 (02:05→20:02)
[2019-05-05 04:00] VITALS: BP 117/55
[2019-05-05 05:12] LABS: BASOPHILS % (AUTO) 0.2 % (0-1); EOSINOPHILS % (AUTO) 0.1 % (0-6); HEMATOCRIT 33.8 % (35.0-45.0); HEMOGLOBIN 11.3 g/dl (12.0-16.0); LYMPHOCYTES # (AUTO) 1.1 X10'3 (1.1-4.8); LYMPHOCYTES % (AUTO) 15.7 % (21-51); MEAN CORPUSCULAR HEMOGLOBIN 30.3 PG (27.0-31.0); MEAN CORPUSCULAR HGB CONC 33.5 g/dL (33.0-36.5); MEAN CORPUSCULAR VOLUME 90.3 FL (78-98); MEAN PLATELET VOLUME 7.3 FL (7.4-10.4); MONOCYTES # (AUTO) 0.6 X10'3 (0-0.9); MONOCYTES % (AUTO) 8.1 % (2-12); NEUTROPHILS # (AUTO) 5.2 X10'3 (1.8-7.7); NEUTROPHILS % (AUTO) 75.9 % (42-75); PLATELET COUNT 301 X10'3 (140-440); RED BLOOD COUNT 3.75 X10'6 (4.20-5.60); WHITE BLOOD COUNT 6.9 X10'3 (4.5-11.0)
[2019-05-05 05:33] LABS: ALANINE AMINOTRANSFERASE 9 U/L (12-78); ALBUMIN 2.2 G/DL (3.4-5.0); ALBUMIN/GLOBULIN RATIO 0.6 (1.1-1.5); ALKALINE PHOSPHATASE 48 IU/L (46-116); ANION GAP 7 (8-16); ASPARTATE AMINO TRANSFERASE 15 U/L (10-37); BILIRUBIN,TOTAL 0.3 MG/DL (0.1-1.0); BLOOD UREA NITROGEN 17 MG/DL (7-18); BUN/CREATININE RATIO 20.7 (6.6-38.0); CALCIUM 7.8 MG/DL (8.5-10.1); CHLORIDE 111 MMOL/L (99-107); CREATININE 0.82 MG/DL (0.40-0.90); GLUCOSE 93 MG/DL (70-104); MAGNESIUM 1.6 MG/DL (1.5-2.4); PHOSPHORUS 2.1 MG/DL (2.3-4.5); POTASSIUM 3.9 MMOL/L (3.5-5.1); SODIUM 143 MMOL/L (135-145); TOTAL CARBON DIOXIDE 25.4 MMOL/L (24-32); TOTAL PROTEIN 5.6 G/DL (6.4-8.2); eGFR 71 ML/MIN
[2019-05-05] MEDS: normal saline 1000ml 1,000 ML IV SCH ×2 (05:55→16:54)
--- NOTE | 2019-05-05 06:09 | NUR ---
Problems reprioritized. Patient report given, questions answered & plan of care reviewed with CARLTON Guthrie.
--- NOTE | 2019-05-05 06:30 | NUR ---
Patient in room [facility]. I have received report from Scarlett VINCENT and had the opportunity to ask questions and assume patient care.
[2019-05-05] MEDS: K and/or MAG REPLACEMENT MC SCH ×2 (08:00→20:00)
[2019-05-05 08:01] VITALS: BP 110/66
[2019-05-05] MEDS: heparin, porcine 5000 units/ml vial SQ SCH ×2 (08:25→20:02)
--- NOTE | 2019-05-05 12:51 | NUR ---
Student documentation: I have reviewed all interventions, assessments performed and documented by Blu HIDALGO
--- NOTE | 2019-05-05 16:46 | NUR ---
Student documentation: Sahra Gabriel RN Clinical Instructor for [facility], have reviewed all interventions, assessments performed and documented by Iveth SLATER from [facility].
--- NOTE | 2019-05-05 18:40 | NUR ---
Problems reprioritized. Patient report given, questions answered & plan of care reviewed with Terri VINCENT.
[2019-05-05 20:00] VITALS: BP 114/61
--- NOTE | 2019-05-05 20:48 | NUR ---
Patient in room [facility]. I have received report from CARLTON Guthrie and had the opportunity to ask questions and assume patient care. Addendum: 05/05/19 at 2048 by Terri Montes RN Amended: Links added.
[2019-05-06 00:37] VITALS: BP 101/66
[2019-05-06] MEDS: HYDROmorphone/NS 1 mg/ml CADD 50 ML IV SCH ×12 (01:00→23:00)
[2019-05-06] MEDS: ceFOXitin sod/dextrose 2g/50ml 50 ML IV SCH ×4 (02:15→19:31)
[2019-05-06] MEDS: normal saline 1000ml 1,000 ML IV SCH ×2 (02:16→13:04)
[2019-05-06 05:11] LABS: BASOPHILS % (AUTO) 0.3 % (0-1); EOSINOPHILS # (AUTO) 0.1 X10'3 (0-0.9); EOSINOPHILS % (AUTO) 2.2 % (0-6); HEMATOCRIT 27.4 % (35.0-45.0); HEMOGLOBIN 9.5 g/dl (12.0-16.0); LYMPHOCYTES # (AUTO) 0.8 X10'3 (1.1-4.8); LYMPHOCYTES % (AUTO) 18.5 % (21-51); MEAN CORPUSCULAR HEMOGLOBIN 31.2 PG (27.0-31.0); MEAN CORPUSCULAR HGB CONC 34.8 g/dL (33.0-36.5); MEAN CORPUSCULAR VOLUME 89.7 FL (78-98); MEAN PLATELET VOLUME 7.2 FL (7.4-10.4); MONOCYTES # (AUTO) 0.3 X10'3 (0-0.9); MONOCYTES % (AUTO) 7.6 % (2-12); NEUTROPHILS % (AUTO) 71.4 % (42-75); PLATELET COUNT 223 X10'3 (140-440); RED BLOOD COUNT 3.05 X10'6 (4.20-5.60); RED CELL DISTRIBUTION WIDTH 13.7 % (11.5-14.5); WHITE BLOOD COUNT 4.3 X10'3 (4.5-11.0)
[2019-05-06 05:25] LABS: ALANINE AMINOTRANSFERASE 8 U/L (12-78); ALBUMIN/GLOBULIN RATIO 0.6 (1.1-1.5); ALKALINE PHOSPHATASE 46 IU/L (46-116); ANION GAP 7 (8-16); ASPARTATE AMINO TRANSFERASE 15 U/L (10-37); BILIRUBIN,TOTAL 0.4 MG/DL (0.1-1.0); BLOOD UREA NITROGEN 11 MG/DL (7-18); CALCIUM 7.9 MG/DL (8.5-10.1); CHLORIDE 108 MMOL/L (99-107); CREATININE 0.61 MG/DL (0.40-0.90); GLUCOSE 97 MG/DL (70-104); MAGNESIUM 1.6 MG/DL (1.5-2.4); PHOSPHORUS 1.3 MG/DL (2.3-4.5); POTASSIUM 3.2 MMOL/L (3.5-5.1); SODIUM 140 MMOL/L (135-145); TOTAL CARBON DIOXIDE 24.7 MMOL/L (24-32); TOTAL PROTEIN 5.3 G/DL (6.4-8.2); eGFR > 90 ML/MIN
--- NOTE | 2019-05-06 06:40 | NUR ---
Problems reprioritized. Patient report given, questions answered & plan of care reviewed with CARLTON Guthrie. Addendum: 05/06/19 at 0640 by Terri Montes RN Amended: Links added.
--- NOTE | 2019-05-06 06:43 | NUR ---
Patient in room [facility]. I have received report from Terri VINCENT and had the opportunity to ask questions and assume patient care.
[2019-05-06 07:33] VITALS: BP 109/64
[2019-05-06] MEDS: heparin, porcine 5000 units/ml vial SQ SCH ×2 (07:39→19:30)
[2019-05-06] MEDS: K and/or MAG REPLACEMENT MC SCH ×2 (08:00→19:59)
[2019-05-06] MEDS ORDERED: magnesium Cl slow-release 64mg tablet PO PRN (10:20)
[2019-05-06] MEDS ORDERED: potassium CL 10mEq/100ml bag 100 ML IV PRN (10:20)
[2019-05-06] MEDS ORDERED: magnesium 4gm in 100ml NS 100 ML IV PRN (10:20)
[2019-05-06] MEDS ORDERED: potassium Cl 20 mEq SR tablet PO PRN (10:20)
[2019-05-06 11:00] VITALS: BP 108/69
--- NOTE | 2019-05-06 13:54 | NUR ---
Initial: Pt admit with post-op SBO. Pt s/p lysis of adhesions and small bowel resection. Patient's diet has just been advanced to clear liquid from NPO, pending documentation of PO intake. LBM 05/02. Pt with ileus per MD notes. Pt with PRN Jaswinder and Brian. Unable to provide nutrition intervention for bowel care at this time given patient's current diet order. Will continue to follow closely. Recommendations: 1) Advance to low fiber diet as medically indicated 2) Monitor need for ONS 3) Bowel care PRN 4) Wt per rx Addendum: 05/06/19 at [address] Amended: Links added.
[2019-05-06] MEDS: potassium Cl 20 mEq SR tablet PO PRN ×2 (14:08→19:31)
[2019-05-06] MEDS: metoclopramide 5 mg/ml inj IV SCH ×2 (15:35→19:31)
--- NOTE | 2019-05-06 18:00 | NUR ---
Patient in room [facility]. I have received report from [place] VINCENT and had the opportunity to ask questions and assume patient care.
--- NOTE | 2019-05-06 18:52 | NUR ---
Problems reprioritized. Patient report given, questions answered & plan of care reviewed with Aubree VINCENT.
[2019-05-06 20:00] VITALS: BP 126/73
[2019-05-07] VITALS: BP 111/66
[2019-05-07] MEDS: normal saline 1000ml 1,000 ML IV SCH ×3 (00:49→22:50)
[2019-05-07] MEDS: HYDROmorphone/NS 1 mg/ml CADD 50 ML IV SCH ×12 (00:58→23:00)
[2019-05-07] MEDS: ceFOXitin sod/dextrose 2g/50ml 50 ML IV SCH ×4 (01:48→20:00)
[2019-05-07] MEDS: metoclopramide 5 mg/ml inj IV SCH ×4 (01:55→19:59)
[2019-05-07] MEDS: potassium Cl 20 mEq SR tablet PO PRN (04:01)
[2019-05-07 05:35] LABS: BASOPHILS % (AUTO) 0.5 % (0-1); EOSINOPHILS # (AUTO) 0.1 X10'3 (0-0.9); EOSINOPHILS % (AUTO) 1.7 % (0-6); HEMATOCRIT 31.3 % (35.0-45.0); HEMOGLOBIN 10.8 g/dl (12.0-16.0); LYMPHOCYTES % (AUTO) 25.6 % (21-51); MEAN CORPUSCULAR HEMOGLOBIN 30.9 PG (27.0-31.0); MEAN CORPUSCULAR HGB CONC 34.5 g/dL (33.0-36.5); MEAN CORPUSCULAR VOLUME 89.7 FL (78-98); MEAN PLATELET VOLUME 7.5 FL (7.4-10.4); MONOCYTES # (AUTO) 0.3 X10'3 (0-0.9); MONOCYTES % (AUTO) 7.8 % (2-12); NEUTROPHILS # (AUTO) 2.5 X10'3 (1.8-7.7); NEUTROPHILS % (AUTO) 64.4 % (42-75); PLATELET COUNT 269 X10'3 (140-440); RED CELL DISTRIBUTION WIDTH 13.4 % (11.5-14.5); WHITE BLOOD COUNT 3.9 X10'3 (4.5-11.0)
[2019-05-07 05:59] LABS: ALANINE AMINOTRANSFERASE 11 U/L (12-78); ALBUMIN 2.3 G/DL (3.4-5.0); ALBUMIN/GLOBULIN RATIO 0.6 (1.1-1.5); ALKALINE PHOSPHATASE 57 IU/L (46-116); ANION GAP 10 (8-16); ASPARTATE AMINO TRANSFERASE 18 U/L (10-37); BILIRUBIN,TOTAL 0.5 MG/DL (0.1-1.0); BLOOD UREA NITROGEN 7 MG/DL (7-18); BUN/CREATININE RATIO 11.9 (6.6-38.0); CALCIUM 8.3 MG/DL (8.5-10.1); CHLORIDE 105 MMOL/L (99-107); CREATININE 0.59 MG/DL (0.40-0.90); GLUCOSE 102 MG/DL (70-104); MAGNESIUM 1.7 MG/DL (1.5-2.4); PHOSPHORUS 1.3 MG/DL (2.3-4.5); POTASSIUM 3.5 MMOL/L (3.5-5.1); SODIUM 138 MMOL/L (135-145); TOTAL CARBON DIOXIDE 23.2 MMOL/L (24-32); TOTAL PROTEIN 6.2 G/DL (6.4-8.2); eGFR > 90 ML/MIN
--- NOTE | 2019-05-07 06:00 | NUR ---
Patient in room [facility]. I have received report from CARLTON Mak and had the opportunity to ask questions and assume patient care.
--- NOTE | 2019-05-07 07:01 | NUR ---
Problems reprioritized. Patient report given, questions answered & plan of care reviewed with Ching VINCENT.
[2019-05-07 08:00] VITALS: BP 123/76
[2019-05-07] MEDS: K and/or MAG REPLACEMENT MC SCH ×2 (08:00→20:00)
[2019-05-07] MEDS: heparin, porcine 5000 units/ml vial SQ SCH ×2 (09:46→20:00)
[2019-05-07 11:00] VITALS: BP 119/70
[2019-05-07 18:00] VITALS: BP 114/77
--- NOTE | 2019-05-07 18:00 | NUR ---
Patient in room [facility]. I have received report from Ching VINCENT and had the opportunity to ask questions and assume patient care.
--- NOTE | 2019-05-07 18:00 | NUR ---
Problems reprioritized. Patient report given, questions answered & plan of care reviewed with CARLTON Mak.
[2019-05-08] VITALS: BP 116/67
[2019-05-08] MEDS: HYDROmorphone/NS 1 mg/ml CADD 50 ML IV SCH ×7 (01:00→13:00)
[2019-05-08] MEDS: ceFOXitin sod/dextrose 2g/50ml 50 ML IV SCH ×4 (01:26→19:37)
[2019-05-08] MEDS: metoclopramide 5 mg/ml inj IV SCH ×4 (02:28→19:25)
--- NOTE | 2019-05-08 06:00 | NUR ---
Problems reprioritized. Patient report given, questions answered & plan of care reviewed with Ching VINCENT.
--- NOTE | 2019-05-08 06:00 | NUR ---
Patient in room [facility]. I have received report from CARLTON Mak and had the opportunity to ask questions and assume patient care.
[2019-05-08] MEDS: normal saline 1000ml 1,000 ML IV SCH ×3 (06:30→19:37)
[2019-05-08 08:00] VITALS: BP 134/75
[2019-05-08] MEDS: K and/or MAG REPLACEMENT MC SCH ×2 (08:00→19:41)
[2019-05-08] MEDS: heparin, porcine 5000 units/ml vial SQ SCH ×2 (10:24→19:25)
[2019-05-08 11:00] VITALS: BP 117/77
[2019-05-08] MEDS: HYDROcodone/acetaminophen 5mg/325mg tablet PO PRN ×2 (14:49→21:53)
--- NOTE | 2019-05-08 18:00 | NUR ---
Problems reprioritized. Patient report given, questions answered & plan of care reviewed with CARLTON Mak.
--- NOTE | 2019-05-08 18:15 | NUR ---
Patient in room [facility]. I have received report from Ching VINCENT and had the opportunity to ask questions and assume patient care.
[2019-05-08 20:00] VITALS: BP 114/67
[2019-05-09] VITALS: BP 107/67
[2019-05-09] MEDS: ceFOXitin sod/dextrose 2g/50ml 50 ML IV SCH ×2 (01:53→08:14)
[2019-05-09] MEDS: metoclopramide 5 mg/ml inj IV SCH ×2 (01:53→08:14)
[2019-05-09] MEDS: normal saline 1000ml 1,000 ML IV SCH (05:00)
--- NOTE | 2019-05-09 05:54 | NUR ---
Problems reprioritized. Patient report given, questions answered & plan of care reviewed with Liane VINCENT.
[2019-05-09 07:00] VITALS: BP 121/65
--- NOTE | 2019-05-09 07:00 | NUR ---
Patient in room [facility]. I have received report from Aubree VINCENT and had the opportunity to ask questions and assume patient care.
[2019-05-09] MEDS: heparin, porcine 5000 units/ml vial SQ SCH (08:00)
[2019-05-09] MEDS: K and/or MAG REPLACEMENT MC SCH (08:00)
[2019-05-09] MEDS: HYDROcodone/acetaminophen 5mg/325mg tablet PO PRN (08:16)
[2019-05-09 12:11] VITALS: BP 130/86
--- NOTE | 2019-05-09 14:25 | NUR ---
Pt DC to home with . pt A & I, in no apparent pain. Pt and verbalized understanding on all DC orders/directions. pt states Dr Tinoco already has given her a followup appointment and pain meds were already called to [facility] in [place]. Pt's belongings were packed and carried out by her . pt wheeled out to the front were picked her up.
[2019-05-09] MEDS ORDERED: HYDR-4353 PO (14:44)
[2019-05-10] MEDS ORDERED: NEUPHOSK PO (09:14)
== END 2019-05-09 14:50 | disposition home or self-care (01) | DRG 331 ==
LOC: ER 05:02 → ED HOLD 10:36 → SUR 3N 11:44 → CMPBEDREQ 05-03 12:51
PROVIDERS: ADMIT Family Medicine; ATTEND Family Medicine
PROC: BW211ZZ Computerized Tomography (CT Scan) of Abdomen and Pelvis using Low Osmolar Contrast (ICD-10-PCS; 2019-05-02)
PROC: 0DN80ZZ Release Small Intestine, Open Approach (ICD-10-PCS; 2019-05-04)
PROC: 0DB80ZZ Excision of Small Intestine, Open Approach (ICD-10-PCS; principal; 2019-05-04 06:29)
DX: K91.30 Postprocedural intestinal obstruction, unspecified as to partial versus complete (principal); K66.0 Peritoneal adhesions (postprocedural) (postinfection); Z98.84 Bariatric surgery status; Z90.710 Acquired absence of both cervix and uterus; Z83.3 Family history of diabetes mellitus; Y83.8 Other surgical procedures as the cause of abnormal reaction of the patient, or of later complication, without mention of misadventure at the time of the procedure; Y82.8 Other medical devices associated with adverse incidents
CPT/HCPCS: 96361; 96374; 96375; 96376; 99285; Z7506; Z7508; 36415; 74176; 74177; 80053; 81001; 81025; 82948; 83690; 83735; 84100; 85025; 87081; 97161; 97530; A4215; A4618; A6266; A7000; C1758; C9290; C9399; G0378; J0694; J1100; J1170; J1580; J1644; J2001; J2175; J2250; J2270; J2370; J2405; J2704; J2710; J2765; J3010; J3490; J7030; J7120; Q9963; Q9967